=== PATIENT | male | born 1970 | race American Indian/Alaskan Native ===

== ENCOUNTER 2020-04-21 22:49 | Emergency (ER) | payer MEDICARE, MEDICAID ==
[2020-04-21 23:55] LABS: Basophils % (Auto) 0.5 % (0.0-1.8); Eosinophils # (Auto) 0.3 K/mm3 (0.0-0.4); Eosinophils % (Auto) 3.4 % (0.0-4.3); Hematocrit 47.6 % (35.5-45.6); Hemoglobin 16.8 gm/dl (11.8-15.2); Lymphocytes # (Auto) 1.3 K/mm3 (1.2-5.4); Lymphocytes % (Auto) 14.3 % (13.4-35.0); Mean Corpuscular HGB Conc 35 % (32-34); Mean Corpuscular Volume 87 fl (84-94); Monocytes % (Auto) 11.2 % (0.0-7.3); Platelet Count 210 K/mm3 (140-440); Red Cell Distribution Width 14.7 % (13.2-15.2)
[2020-04-22 00:13] LABS: BUN/Creatinine Ratio 19; Blood Urea Nitrogen 17 mg/dL (9-20); Calcium 9.5 mg/dL (8.4-10.2); Hemolysis Index 20
--- NOTE | 2020-04-22 00:27 | Emergency Department Report ---
<LYNNETTE PRESSLEY - Last Filed: 04/22/20 02:09> ED Psych HPI - General Chief Complaint: Psych Stated Complaint: SI Time Seen by Provider: 04/21/20 23:18 Source: patient, EMS Mode of arrival: Ambulatory - History of Present Illness Initial Comments: 49-year-old male with a past medical history of major depressive disorder, previous suicide attempt via overdose, AIDS, hypertension, and type 2 diabetes presents to the hospital complaining of suicidal ideation and substance abuse. Patient states he has been suicidal for the last day and a half because his boyfriend broke up with him. He relapsed on methamphetamines and GHB. Patient denies any physical complaints. He is compliant with his medications antiretrovirals and states his medication list is currently at [facility]. He was sent to [facility] for medical clearance for inpatient psychiatric admission. Patient states he takes metformin 1000 mg twice daily, glipizide 2 to 3 mg daily, and lisinopril 10 mg for his blood pressure. He also takes antiretrovirals - Related Data Allergies Allergy/AdvReac Type Severity Reaction Status Date / Time No Known Allergies Allergy Unverified 04/21/20 23:27 ED Review of Systems Comment: All other systems reviewed and negative ED Past Medical Hx - Past Medical History Hx Hypertension: Yes Hx Diabetes: Yes (TYPE 2) Hx HIV: Yes (AIDS) - Social History Smoking Status: Current Every Day Smoker Substance Use Type: Methamphetamines, Other ED Physical Exam - General Limitations: No Limitations - Other Other exam information: General: No acute distress Head: Atraumatic Eyes: normal appearance ENT: Moist mucous membranes Neck: Normal appearance, no midline tenderness Chest: Clear to auscultation bilaterally CV: Regular rate and rhythm Abdomen: Soft, normal bowel sounds, nontender, nondistended, no rebound or guarding Back: Normal inspection Extremity: Normal inspection, full range of motion Neuro: Alert O x 3, no facial asymmetry, speech clear, no gross motor sensory deficit Psych: Appropriate behavior Skin: No rash ED Course - Reevaluation(s) Reevaluation #1: 04/22/20 02:10 At this time still awaiting urine collection to complete medical clearance. Patient will need to be signed out. Patient's heart rate 100 and he does endorse methamphetamine use. Anticipate that patient will be able to be medically cleared after UA and UDS review ED Medical Decision Making - Lab Data Result diagrams: 04/21/20 23:28 04/21/20 23:28 Lab Results 04/21/20 04/21/20 04/21/20 Range/Units 23:28 23:28 23:28 WBC 9.2 (4.5-11.0) K/mm3 RBC 5.50 H (3.65-5.03) M/mm3 Hgb 16.8 H (11.8-15.2) gm/dl Hct 47.6 H (35.5-45.6) % MCV 87 (84-94) fl MCH 31 (28-32) pg MCHC 35 H (32-34) % RDW 14.7 (13.2-15.2) % Plt Count 210 (140-440) K/mm3 Lymph % (Auto) 14.3 (13.4-35.0) % [place] % (Auto) 11.2 H (0.0-7.3) % Eos % (Auto) 3.4 (0.0-4.3) % Baso % (Auto) 0.5 (0.0-1.8) % Lymph # (Auto) 1.3 (1.2-5.4) K/mm3 [place] # (Auto) 1.0 H (0.0-0.8) K/mm3 Eos # (Auto) 0.3 (0.0-0.4) K/mm3 Baso # (Auto) 0.0 (0.0-0.1) K/mm3 Seg Neutrophils % 70.6 H (40.0-70.0) % Seg Neutrophils # 6.5 (1.8-7.7) K/mm3 Sodium 134 L (137-145) mmol/L Potassium 3.4 L (3.6-5.0) mmol/L Chloride 91.3 L (98-107) mmol/L Carbon Dioxide 22 (22-30) mmol/L Anion Gap 24 mmol/L BUN 17 (9-20) mg/dL Creatinine 0.9 (0.8-1.3) mg/dL Estimated GFR > 60 ml/min BUN/Creatinine Ratio 19 % Glucose 222 H (75-100) mg/dL Calcium 9.5 (8.4-10.2) mg/dL Salicylates < 0.3 L (2.8-20.0) mg/dL Acetaminophen (10.0-30.0) ug/mL Plasma/Serum Alcohol (0-0.07) % 04/21/20 04/21/20 Range/Units 23:28 23:28 WBC (4.5-11.0) K/mm3 RBC (3.65-5.03) M/mm3 Hgb (11.8-15.2) gm/dl Hct (35.5-45.6) % MCV (84-94) fl MCH (28-32) pg MCHC (32-34) % RDW (13.2-15.2) % Plt Count (140-440) K/mm3 Lymph % (Auto) (13.4-35.0) % [place] % (Auto) (0.0-7.3) % Eos % (Auto) (0.0-4.3) % Baso % (Auto) (0.0-1.8) % Lymph # (Auto) (1.2-5.4) K/mm3 [place] # (Auto) (0.0-0.8) K/mm3 Eos # (Auto) (0.0-0.4) K/mm3 Baso # (Auto) (0.0-0.1) K/mm3 Seg Neutrophils % (40.0-70.0) % Seg Neutrophils # (1.8-7.7) K/mm3 Sodium (137-145) mmol/L Potassium (3.6-5.0) mmol/L Chloride (98-107) mmol/L Carbon Dioxide (22-30) mmol/L Anion Gap mmol/L BUN (9-20) mg/dL Creatinine (0.8-1.3) mg/dL Estimated GFR ml/min BUN/Creatinine Ratio % Glucose (75-100) mg/dL Calcium (8.4-10.2) mg/dL Salicylates (2.8-20.0) mg/dL Acetaminophen 5.0 L (10.0-30.0) ug/mL Plasma/Serum Alcohol < 0.01 (0-0.07) % - Medical Decision Making 1013 signed for suicidal ideation with plan. I have continued his diabetes and blood pressure medication. Awaiting mental health consultation in the a.m. Critical Care Time: No ED Disposition Clinical Impression: Suicidal ideation, Methamphetamine abuse, Gammahydroxy butarate (GHB) use disorder, mild, abuse, Intentional acetaminophen overdose Disposition: DC/TX-65 PSY HOSP/PSY UNIT Condition: Stable Instructions: Suicide Prevention for Adults (ED) Additional Instructions: Patient will be discharged back to Inpatient psychiatric services at [facility] [Primary Care Provider[facility] - 3-5 Days <BRITNEY ROTH - Last Filed: 04/22/20 17:17> ED Medical Decision Making - Lab Data Result diagrams: 04/21/20 23:28 04/21/20 23:28 - Medical Decision Making Patient was screened by mental health and after medical clearance the patient to be sent back to [facility] Medically cleared after being observed in the emergency department for greater than 18 hours. <CYNTHIA WEINSTEIN - Last Filed: 04/24/20 14:47> ED Review of Systems ROS: Stated complaint: SI Other details as noted in HPI ED Course Vital Signs 04/21/20 04/22/20 04/22/20 23:10 02:04 09:16 Temperature 97.9 F 97.3 F L 98.0 F Pulse Rate 109 H 100 H 100 H Respiratory 16 18 16 Rate Blood Pressure 155/95 Blood Pressure 151/91 150/72 [Right] O2 Sat by Pulse 99 98 98 Oximetry 04/22/20 04/22/20 04/22/20 10:06 10:44 15:29 Temperature Pulse Rate 100 H 100 H Respiratory 18 18 Rate Blood Pressure 150/78 Blood Pressure 102/64 [Right] O2 Sat by Pulse 98 98 Oximetry 04/22/20 19:18 Temperature 98.0 F Pulse Rate 109 H Respiratory 18 Rate Blood Pressure Blood Pressure 104/75 [Right] O2 Sat by Pulse 97 Oximetry - Reevaluation(s) Reevaluation #2: 04/22/20 08:47 Leukocytosis likely a stress reaction, likely secondary to methamphetamine use. Tachycardia and elevated blood pressure also likely secondary to this. Polycythemia does not represent an emergency medical condition, it as an outpatient condition, and is likely secondary to dehydration. At this moment, patient does not appear to have an immediate medical contraindication to psychiatric imaging, evaluation, consultation and placement. As needed Xanax is ordered. Urinalysis is pending, nursing team is instructed to repeat vital signs. ED Medical Decision Making - Lab Data Result diagrams: 04/21/20 23:28 04/21/20 23:28 Critical care attestation.: If time is entered above; I have spent that time in minutes in the direct care of this critically ill patient, excluding procedure time. ED Disposition Is pt being admited?: No Does the pt Need Aspirin: No
[2020-04-22] MEDS ORDERED: metFORMIN 500 MG TAB PO ONE (00:31)
[2020-04-22] MEDS ORDERED: POTASSIUM CHLORIDE ER 20 MEQ TAB PO ONE (00:31)
[2020-04-22] MEDS ORDERED: ALPRAZolam 0.5 MG TAB PO PRN (08:47)
[2020-04-22] MEDS: metFORMIN 500 MG TAB PO SCH ×2 (08:54→21:24)
[2020-04-22 09:25] LABS: Bilirubin,Urine NEG (Negative); Blood,Urine NEG (Negative); Color,Urine Yellow (Yellow); Hyaline Casts,Urine 1 /LPF; Mucus,Urine FEW /HPF; Protein,Urine <15 mg/dL mg/dL (Negative)
[2020-04-22 09:33] LABS: Benzodiazepines Screen,Urine Negative; Cannabinoid Screen,Urine Negative; Cocaine Screen,Urine Negative; Methadone Screen,Urine Negative; Opiate Screen,Urine Negative
[2020-04-22 09:47] LABS: Amphetamine Screen,Urine Positive
[2020-04-22] MEDS ORDERED: LISINOPRIL 10 MG TAB PO SCH (10:00)
[2020-04-22 19:19] VITALS: BP 104/75
== END 2020-04-23 00:24 ==
LOC: ED 22:49 → EEVIPCON 22:49 → ED 04-23 00:24
DX: T39.1X2A Poisoning by 4-Aminophenol derivatives, intentional self-harm, initial encounter (principal); R45.851 Suicidal ideations; F15.10 Other stimulant abuse, uncomplicated; F13.10 Sedative, hypnotic or anxiolytic abuse, uncomplicated; I10 Essential (primary) hypertension; F32.9 Major depressive disorder, single episode, unspecified; E11.9 Type 2 diabetes mellitus without complications; F17.200 Nicotine dependence, unspecified, uncomplicated; Z21 Asymptomatic human immunodeficiency virus [HIV] infection status; Y93.89 Activity, other specified
CPT/HCPCS: 36415; 80048; 80320; 85025; G0480

== ENCOUNTER 2021-10-27 19:58 | Emergency (ER) | payer MEDICARE ==
[2021-10-27 20:05] VITALS: BP 173/90
[2021-10-27] MEDS ORDERED: HYDROcodone/ACETAMINOPHEN 5-325 MG TAB PO ONE (22:54)
--- NOTE | 2021-10-27 23:19 | Emergency Department Report ---
ED General Adult HPI - General Chief complaint: Extremity Injury, Lower Stated complaint: RIGHT LEG AND FOOT SWOLLEN Time Seen by Provider: 10/27/21 22:53 Source: patient Mode of arrival: Ambulatory Limitations: No Limitations - History of Present Illness Initial comments: Patient is a 50-year-old male with history of peripheral vascular disease, status post femoropopliteal 5 weeks ago right lower extremity, HIV polyps, hypertension, diabetes type 2, patient presents for right lower extremity pain, that radiates to right groin. With some swelling. Patient states femoropopliteal 5 weeks ago with [facility] vascular. Patient has follow-up with vascular surgery in 1 week. States 5/10 leg pain that radiates to right groin. Patient denies calf numbness or tingling pain is exacerbated by palpation and dorsiflexion. There is no shortness of breath, no cough no shortness of breath no wheezing, no fever no chills. There is no paralysis no weakness patient denies fall injury or trauma. Severity scale (0 -10): 8 - Related Data Home Medications Medication Instructions Recorded Confirmed Last Taken Glimepiride [Amaryl] 2 mg PO DAILY 09/15/20 09/15/20 Unknown Metformin HCl [metFORMIN] 1,000 mg PO BID 09/15/20 09/15/20 Unknown lisinopriL [Lisinopril] 10 mg PO DAILY 09/15/20 09/15/20 Unknown Previous Rx's Medication Instructions Recorded Last Taken Type ARIPiprazole [Abilify TAB] 10 mg PO QDAY #14 tablet 09/16/20 Unknown Rx Lispro Insulin [HumaLOG] 0 unit SUB-Q QACHS #1 vial 09/16/20 Unknown Rx Melatonin [Melatonin 5MG TAB] 5 mg PO QHS #14 tablet 09/16/20 Unknown Rx Sertraline [Zoloft] 150 mg PO QDAY #14 tablet 09/16/20 Unknown Rx buPROPion XL [Wellbutrin XL] 300 mg PO QDAY #14 tablet 09/16/20 Unknown Rx levoFLOXacin [Levaquin] 750 mg PO QDAY #4 tablet 09/16/20 Unknown Rx traZODone [Desyrel] 75 mg PO QHS tablet 09/16/20 Unknown Rx traMADoL [Ultram] 50 mg PO Q6HR PRN #12 tablet 10/28/21 Unknown Rx Allergies Allergy/AdvReac Type Severity Reaction Status Date / Time No Known Allergies Allergy Verified 10/27/21 20:20 ED Review of Systems ROS: Stated complaint: RIGHT LEG AND FOOT SWOLLEN Other details as noted in HPI Constitutional: denies: chills, fever Eyes: denies: eye pain, eye discharge, vision change ENT: denies: ear pain, throat pain Respiratory: denies: cough, shortness of breath, wheezing Cardiovascular: denies: chest pain, palpitations, paroxysmal nocturnal dyspnea Endocrine: no symptoms reported Gastrointestinal: denies: abdominal pain, nausea, vomiting, diarrhea Genitourinary: denies: urgency, dysuria Musculoskeletal: other (Right leg pain) Skin: denies: rash, lesions Neurological: denies: headache, weakness, numbness, paresthesias, confusion, vertigo Psychiatric: denies: anxiety, depression Hematological/Lymphatic: denies: easy bleeding, easy bruising ED Past Medical Hx - Past Medical History Previous Medical History?: Yes Hx Hypertension: Yes Hx Congestive Heart Failure: No Hx Diabetes: Yes (TYPE 2) Hx Asthma: No Hx COPD: No Hx HIV: Yes (AIDS) - Surgical History Past Surgical History?: Yes Additional Surgical History: TOE AMPUTATION MIDDLE TOE RIGHT - Social History Smoking Status: Current Every Day Smoker Substance Use Type: None - Medications Home Medications: Home Medications Medication Instructions Recorded Confirmed Last Taken Type Glimepiride [Amaryl] 2 mg PO DAILY 09/15/20 09/15/20 Unknown History Metformin HCl [metFORMIN] 1,000 mg PO BID 09/15/20 09/15/20 Unknown History lisinopriL [Lisinopril] 10 mg PO DAILY 09/15/20 09/15/20 Unknown History ARIPiprazole [Abilify TAB] 10 mg PO QDAY #14 tablet 09/16/20 Unknown Rx Lispro Insulin [HumaLOG] 0 unit SUB-Q QACHS #1 vial 09/16/20 Unknown Rx Melatonin [Melatonin 5MG TAB] 5 mg PO QHS #14 tablet 09/16/20 Unknown Rx Sertraline [Zoloft] 150 mg PO QDAY #14 tablet 09/16/20 Unknown Rx buPROPion XL [Wellbutrin XL] 300 mg PO QDAY #14 tablet 09/16/20 Unknown Rx levoFLOXacin [Levaquin] 750 mg PO QDAY #4 tablet 09/16/20 Unknown Rx traZODone [Desyrel] 75 mg PO QHS tablet 09/16/20 Unknown Rx traMADoL [Ultram] 50 mg PO Q6HR PRN #12 tablet 10/28/21 Unknown Rx ED Physical Exam - General Limitations: No Limitations General appearance: alert, in no apparent distress - Head Head exam: Present: normocephalic, normal inspection - Eye Eye exam: Present: EOMI Pupils: Present: normal accommodation - ENT ENT exam: Present: mucous membranes moist - Neck Neck exam: Present: normal inspection, full ROM. Absent: tenderness, lymphadenopathy - Respiratory Respiratory exam: Present: normal lung sounds bilaterally. Absent: respiratory distress, wheezes, stridor, chest wall tenderness - Cardiovascular Cardiovascular Exam: Present: regular rate, normal rhythm, normal heart sounds. Absent: systolic murmur, diastolic murmur, rubs, gallop - GI/Abdominal GI/Abdominal exam: Present: soft, normal bowel sounds. Absent: distended, tenderness, guarding, rebound, rigid, bruit, hernia - Rectal Rectal exam: Present: deferred - Extremities Exam Extremities exam: Present: full ROM, normal capillary refill, pedal edema. Absent: tenderness, joint swelling, calf tenderness - Expanded Lower Extremity Exam Right Lower Leg exam: Present: swelling. Absent: ecchymosis, crepidus, erythema, palpable cord, Radha's sign Ankle exam: Absent: tenderness Foot/Toe exam: Present: swelling. Absent: tenderness Neuro vascular tendon exam: Absent: pulse deficit, motor deficit, sensory deficit, tendon deficit Gait: Positive: observed and normal - Back Exam Back exam: Present: normal inspection, full ROM. Absent: CVA tenderness (R), CVA tenderness (L) - Neurological Exam Neurological exam: Present: alert, oriented X3, CN II-XII intact, normal gait, reflexes normal - Expanded Neurological Exam Expanded Patient oriented to: Present: person, place, time Speech: Present: fluid speech Motor strength exam: RUE: 5, LUE: 5, RLE: 5, LLE: 5 DTR: knee (R): 1+, knee (L): 1+ Best Eye Response (Kent): (4) open spontaneously Best Motor Response (Kent): (6) obeys commands Best Verbal Response (Peter): (5) oriented Peter Total: 15 - Psychiatric Psychiatric exam: Present: normal affect - Skin Skin exam: Present: warm, dry, intact, normal color. Absent: rash ED Course Vital Signs 10/27/21 20:04 Temperature 98.2 F Pulse Rate 99 H Respiratory 18 Rate Blood Pressure 173/90 O2 Sat by Pulse 100 Oximetry ED Medical Decision Making - Radiology Data Radiology results: report reviewed, image reviewed Ordering Physician: LESLIE MORRIS NP Date of Service: 10/27/21 Procedure(s): VL venous duplex LE RT Accession Number(s): [id number] cc: LESLIE MORRIS NP DUPLEX DOPPLER LOWER EXTREMITY VEINS, RIGHT INDICATION / CLINICAL INFORMATION: RLE pain swelling. TECHNIQUE: Duplex doppler imaging was performed through the veins of the right lower extremity using venous compression and other maneuvers. COMPARISON: None available. FINDINGS: RIGHT COMMON FEMORAL VEIN: Negative. RIGHT FEMORAL VEIN: Negative. RIGHT POPLITEAL VEIN: Negative. RIGHT CALF VEINS: Negative. ADDITIONAL FINDINGS: None. IMPRESSION: 1. No sonographic evidence for DVT in the right lower extremity. Signer Name: Rafa Godinez II, MD Signed: 10/27/2021 11:53 PM Workstation Name: [id number] Transcribed By: GILBERT Dictated By: RAFA GODINEZ II, MD Electronically Authenticated By: RAFA GODINEZ II, MD Signed Date/Time: 10/27/212352 DD/ 52 TD/TT: - Medical Decision Making Doppler study right lower extremity no evidence of DVT, there is no noted hernia on exam, there is no open lesions sores or wounds. Plan follow-up with vascular surgery as scheduled, NSAIDs as needed pain, return to emergency department should symptoms worsen. Patient verbalized agreement understanding with discharge plan. Patient DC'd home in stable condition at this time. Critical care attestation.: If time is entered above; I have spent that time in minutes in the direct care of this critically ill patient, excluding procedure time. ED Disposition Clinical Impression: Musculoskeletal pain of right lower extremity Disposition: 07 LEFT WITHOUT BEING SEEN Is pt being admited?: No Does the pt Need Aspirin: No Condition: Stable Instructions: Pain Without a Known Cause, Musculoskeletal Pain Additional Instructions: Take medications as prescribed follow-up with your doctor in 2 to 3 days. Return to emergency should symptoms worsen Prescriptions: traMADoL [Ultram] 50 mg PO Q6HR PRN #12 tablet PRN Reason: Pain Referrals: MILY ROB MD [Primary Care Provider] - 3-5 Days [facility] [Provider Group] - 3-5 Days Forms: Work/School Release Form(ED) Time of Disposition: 00:15
--- NOTE | 2021-10-27 23:57 | Vascular Lab Report ---
DUPLEX DOPPLER LOWER EXTREMITY VEINS, RIGHT INDICATION / CLINICAL INFORMATION: RLE pain swelling. TECHNIQUE: Duplex doppler imaging was performed through the veins of the right lower extremity using venous compression and other maneuvers. COMPARISON: None available. FINDINGS: RIGHT COMMON FEMORAL VEIN: Negative. RIGHT FEMORAL VEIN: Negative. RIGHT POPLITEAL VEIN: Negative. RIGHT CALF VEINS: Negative. ADDITIONAL FINDINGS: None. IMPRESSION: 1. No sonographic evidence for DVT in the right lower extremity. Signer Name: Yann Godinez II, MD Signed: 10/27/2021 11:53 PM Workstation Name: [id number]
== END 2021-10-28 00:30 | disposition left against medical advice (07) ==
LOC: ED 19:58
DX: M79.661 Pain in right lower leg (principal); I10 Essential (primary) hypertension; E11.9 Type 2 diabetes mellitus without complications; Z21 Asymptomatic human immunodeficiency virus [HIV] infection status; Z79.899 Other long term (current) drug therapy; Z98.890 Other specified postprocedural states; F17.200 Nicotine dependence, unspecified, uncomplicated
CPT/HCPCS: 99283

== ENCOUNTER 2021-10-30 15:13 | Emergency (ER) | payer MEDICARE ==
[2021-10-30 15:26] VITALS: BP 112/66
--- NOTE | 2021-10-30 16:02 | Emergency Department Report ---
ED Rash HPI - HPI Chief Complaint: Skin Rash Stated Complaint: POSSIBLE LEG INFECTION Duration: Today Location: Lower Extremities Rash Symptoms: No Itching, No Facial Swelling, No Tongue/Oral Swelling, No Breathing Difficulties, No Choking Sensation, No Wheezing/Dyspnea, No Peeling, No Blistering, No Fever, No Lightheaded, No Malaise, No Myalgias Severity: mild Other History: 50-year-old male presents to the ED with a rash noted to his right inner thigh area with mild drainage noted. Patient states that he had a pimple that is peeled and now has erythema with mild edema noted to the area. He denies any pain to the site. Patient is alert and oriented x3. No acute distress noted no ill appearance noted. Denies any fever, chills ,nausea or vomiting. ED Review of Systems ROS: Stated complaint: POSSIBLE LEG INFECTION Other details as noted in HPI Constitutional: denies: chills, fever Eyes: denies: eye pain, eye discharge, vision change ENT: denies: ear pain, throat pain Respiratory: denies: cough, shortness of breath, wheezing Cardiovascular: denies: chest pain, palpitations Endocrine: no symptoms reported Gastrointestinal: denies: abdominal pain, nausea, diarrhea Genitourinary: denies: urgency, dysuria Musculoskeletal: denies: back pain, joint swelling, arthralgia Skin: rash. denies: lesions Neurological: denies: headache, weakness, paresthesias Psychiatric: denies: anxiety, depression Hematological/Lymphatic: denies: easy bleeding, easy bruising ED Past Medical Hx - Past Medical History Hx Hypertension: Yes Hx Congestive Heart Failure: No Hx Diabetes: Yes (TYPE 2) Hx Asthma: No Hx COPD: No Hx HIV: Yes (AIDS) - Surgical History Additional Surgical History: TOE AMPUTATION MIDDLE TOE RIGHT - Social History Smoking Status: Never Smoker Substance Use Type: None - Medications Home Medications: Home Medications Medication Instructions Recorded Confirmed Last Taken Type Glimepiride [Amaryl] 2 mg PO DAILY 09/15/20 09/15/20 Unknown History Metformin HCl [metFORMIN] 1,000 mg PO BID 09/15/20 09/15/20 Unknown History lisinopriL [Lisinopril] 10 mg PO DAILY 09/15/20 09/15/20 Unknown History ARIPiprazole [Abilify TAB] 10 mg PO QDAY #14 tablet 09/16/20 Unknown Rx Lispro Insulin [HumaLOG] 0 unit SUB-Q QACHS #1 vial 09/16/20 Unknown Rx Melatonin [Melatonin 5MG TAB] 5 mg PO QHS #14 tablet 09/16/20 Unknown Rx Sertraline [Zoloft] 150 mg PO QDAY #14 tablet 09/16/20 Unknown Rx buPROPion XL [Wellbutrin XL] 300 mg PO QDAY #14 tablet 09/16/20 Unknown Rx levoFLOXacin [Levaquin] 750 mg PO QDAY #4 tablet 09/16/20 Unknown Rx traZODone [Desyrel] 75 mg PO QHS tablet 09/16/20 Unknown Rx traMADoL [Ultram] 50 mg PO Q6HR PRN #12 tablet 10/28/21 Unknown Rx Acetaminophen/Codeine [Tylenol 1 tab PO Q6H PRN 3 Days #12 tab 10/30/21 Unknown Rx /Codeine # 3 tab] Sulfamethoxazole/Trimethoprim 1 each PO BID 10 Days #20 tab 10/30/21 Unknown Rx [Bactrim DS TAB] cephALEXin [Keflex] 500 mg PO Q12HR 10 Days #20 cap 10/30/21 Unknown Rx Rash Exam - Exam General: Vital signs noted. No distress. Alert and acting appropriately. HEENT: No Periorbital Edema, No Conjuctival Injection, No Chemosis, No Perioral Edema, No Tongue Edema, No Uvular Edema, No Compromised Airway, No Drooling Lungs: Yes Good Air Exchange (Normal Breath Sounds), No Wheezes, No Ronchi, No Stridor, No Cough, No Labored Respirations, No Retractions, No Use of Accessory Muscles, No Other Abnormal Lung Sounds Heart: Yes Regular, No Murmur Skin: Yes Maculopapular Rash, Yes Tenderness, Yes Erythema, Yes Edema, No Urticarial Rash, No Morbilliform rash, No Bulla(e), No Excoriations, No Weeping, No Encrustations, No Other Other: Positive: Abdomen Normal, Neurologic Normal, Musculoskeletal Normal ED Course Vital Signs 10/30/21 15:24 Temperature 98.4 F Pulse Rate 92 H Respiratory 18 Rate Blood Pressure 112/66 [Right] O2 Sat by Pulse 99 Oximetry ED Medical Decision Making - Medical Decision Making 50-year-old male presents to the ED with a rash noted to his right inner thigh area with mild drainage noted. Patient states that he had a pimple that is peeled and now has erythema with mild edema noted to the area. He denies any pain to the site. Patient is alert and oriented x3. No acute distress noted no ill appearance noted. Denies any fever, chills ,nausea or vomiting. Physical examination noticed cellulitis to the right inner thigh area we will treat patient with antibiotic. Patient to return for any worsening symptoms and to follow-up with primary care doctor in 3-5 days. Rechecked the patient is resting quietly quietly and comfortable and feeling better. I discussed the results of diagnostic study, my clinical impression and the plan for further treatment with the patient. Patient agrees with plan and discharge at this present time. All question addressed. I have given the patient instruction regarding a diagnosis ,expectation ,follow- up and return precaution. I explained to the patient that emergent condition may arise and to return to the ED for new worsen and any new persisting condition. I have explained the importance of following up with the primary care physician or referral physician listed below has instructed. The patient verbalized understanding of discharge instruction. Critical care attestation.: If time is entered above; I have spent that time in minutes in the direct care of this critically ill patient, excluding procedure time. ED Disposition Clinical Impression: Cellulitis Qualifiers: Site of cellulitis: extremity Site of cellulitis of extremity: lower extremity Laterality: right Qualified Code(s): L03.115 - Cellulitis of right lower limb Disposition: 01 HOME / SELF CARE / HOMELESS Is pt being admited?: No Does the pt Need Aspirin: No Condition: Stable Instructions: Cellulitis, Adult, [id number] Additional Instructions: Take medication as prescribed Return to ED for any worsening symptom Follow-up with primary care doctor in 3 to 5 days Prescriptions: Sulfamethoxazole/Trimethoprim [Bactrim DS TAB] 1 each PO BID 10 Days #20 tab cephALEXin [Keflex] 500 mg PO Q12HR 10 Days #20 cap Acetaminophen/Codeine [Tylenol /Codeine # 3 tab] 1 tab PO Q6H PRN 3 Days #12 tab PRN Reason: Pain, Moderate (4-6) Referrals: [facility] [Provider Group] - 3-5 Days
== END 2021-10-30 16:28 | disposition home or self-care (01) ==
LOC: ED 15:13
DX: L03.115 Cellulitis of right lower limb (principal); I10 Essential (primary) hypertension; E11.9 Type 2 diabetes mellitus without complications; Z21 Asymptomatic human immunodeficiency virus [HIV] infection status
CPT/HCPCS: 99282

== ENCOUNTER 2021-11-23 11:02 | Emergency (ER) | payer MEDICARE ==
--- NOTE | 2021-11-23 13:43 | Emergency Department Report ---
ED General Adult HPI - General Chief complaint: Extremity Injury, Lower Stated complaint: RT LEG PAIN Source: patient Mode of arrival: Ambulatory Limitations: No Limitations - History of Present Illness Initial comments: 50-year-old male with past medical history hypertension, diabetes type 2, HIV reports to the ER with complaints of right leg swelling with redness that he noticed yesterday morning. Patient denies any acute pain to right leg. Patient denies injury, insect bite or wound to right leg. Patient denies history of DVTs in lower extremities. Patient reports compliance with all medications. Denies dizziness, headache, shortness of breath, chest pain, fatigue and weakness. No other acute symptoms reported. -: Sudden Location: lower extremity (right leg ) Severity scale (0 -10): 0 Associated Symptoms: rash, other (right leg swelling ) - Related Data Home Medications Medication Instructions Recorded Confirmed Last Taken Glimepiride [Amaryl] 2 mg PO DAILY 09/15/20 09/15/20 Unknown Metformin HCl [metFORMIN] 1,000 mg PO BID 09/15/20 09/15/20 Unknown lisinopriL [Lisinopril] 10 mg PO DAILY 09/15/20 09/15/20 Unknown Previous Rx's Medication Instructions Recorded Last Taken Type ARIPiprazole [Abilify TAB] 10 mg PO QDAY #14 tablet 09/16/20 Unknown Rx Lispro Insulin [HumaLOG] 0 unit SUB-Q QACHS #1 vial 09/16/20 Unknown Rx Melatonin [Melatonin 5MG TAB] 5 mg PO QHS #14 tablet 09/16/20 Unknown Rx Sertraline [Zoloft] 150 mg PO QDAY #14 tablet 09/16/20 Unknown Rx buPROPion XL [Wellbutrin XL] 300 mg PO QDAY #14 tablet 09/16/20 Unknown Rx traZODone [Desyrel] 75 mg PO QHS tablet 09/16/20 Unknown Rx traMADoL [Ultram] 50 mg PO Q6HR PRN #12 tablet 10/28/21 Unknown Rx Acetaminophen/Codeine [Tylenol 1 tab PO Q6H PRN 3 Days #12 tab 10/30/21 Unknown Rx /Codeine # 3 tab] Sulfamethoxazole/Trimethoprim 1 each PO BID 10 Days #20 tab 11/23/21 Unknown Rx [Bactrim DS TAB] Allergies Allergy/AdvReac Type Severity Reaction Status Date / Time No Known Allergies Allergy Verified 11/23/21 11:10 ED Review of Systems ROS: Stated complaint: RT LEG PAIN Other details as noted in HPI Constitutional: denies: chills, fever Eyes: denies: eye pain, eye discharge, vision change ENT: denies: ear pain, throat pain Respiratory: denies: cough, shortness of breath, wheezing Cardiovascular: denies: chest pain, palpitations Endocrine: no symptoms reported Gastrointestinal: denies: abdominal pain, nausea, diarrhea Genitourinary: denies: urgency, dysuria Musculoskeletal: other (+ right leg swelling with redness and warmth ). denies: back pain, joint swelling, arthralgia Skin: rash. denies: lesions Neurological: denies: headache, weakness, paresthesias Psychiatric: denies: anxiety, depression Hematological/Lymphatic: denies: easy bleeding, easy bruising ED Past Medical Hx - Past Medical History Hx Hypertension: Yes Hx Congestive Heart Failure: No Hx Diabetes: Yes (TYPE 2) Hx Asthma: No Hx COPD: No Hx HIV: Yes (AIDS) - Surgical History Additional Surgical History: TOE AMPUTATION MIDDLE TOE RIGHT - Social History Smoking Status: Never Smoker Substance Use Type: None - Medications Home Medications: Home Medications Medication Instructions Recorded Confirmed Last Taken Type Glimepiride [Amaryl] 2 mg PO DAILY 09/15/20 09/15/20 Unknown History Metformin HCl [metFORMIN] 1,000 mg PO BID 09/15/20 09/15/20 Unknown History lisinopriL [Lisinopril] 10 mg PO DAILY 09/15/20 09/15/20 Unknown History ARIPiprazole [Abilify TAB] 10 mg PO QDAY #14 tablet 09/16/20 Unknown Rx Lispro Insulin [HumaLOG] 0 unit SUB-Q QACHS #1 vial 09/16/20 Unknown Rx Melatonin [Melatonin 5MG TAB] 5 mg PO QHS #14 tablet 09/16/20 Unknown Rx Sertraline [Zoloft] 150 mg PO QDAY #14 tablet 09/16/20 Unknown Rx buPROPion XL [Wellbutrin XL] 300 mg PO QDAY #14 tablet 09/16/20 Unknown Rx traZODone [Desyrel] 75 mg PO QHS tablet 09/16/20 Unknown Rx traMADoL [Ultram] 50 mg PO Q6HR PRN #12 tablet 10/28/21 Unknown Rx Acetaminophen/Codeine [Tylenol 1 tab PO Q6H PRN 3 Days #12 tab 10/30/21 Unknown Rx /Codeine # 3 tab] Sulfamethoxazole/Trimethoprim 1 each PO BID 10 Days #20 tab 11/23/21 Unknown Rx [Bactrim DS TAB] ED Physical Exam - General Limitations: No Limitations General appearance: alert, in no apparent distress - Head Head exam: Present: atraumatic, normocephalic - Eye Eye exam: Present: normal appearance - ENT ENT exam: Present: mucous membranes moist - Neck Neck exam: Present: normal inspection - Respiratory Respiratory exam: Present: normal lung sounds bilaterally. Absent: respiratory distress - Cardiovascular Cardiovascular Exam: Present: regular rate, normal rhythm. Absent: systolic murmur, diastolic murmur, rubs, gallop - GI/Abdominal GI/Abdominal exam: Present: soft, normal bowel sounds - Rectal Rectal exam: Present: deferred - Extremities Exam Extremities exam: Present: normal inspection, other (left leg not affected. ) - Expanded Lower Extremity Exam Right Lower Leg exam: Present: full ROM, tenderness, swelling, erythema Ankle exam: Present: full ROM, tenderness, swelling, erythema Foot/Toe exam: Present: normal inspection, full ROM - Back Exam Back exam: Present: normal inspection - Neurological Exam Neurological exam: Present: alert, oriented X3 - Psychiatric Psychiatric exam: Present: normal affect, normal mood - Skin Skin exam: Present: warm, dry, intact, normal color. Absent: rash ED Course Vital Signs 11/23/21 11/23/21 11:07 16:51 Temperature 98.4 F 97.3 F L Pulse Rate 96 H 80 Respiratory 14 16 Rate Blood Pressure 147/89 Blood Pressure 155/87 [Left] O2 Sat by Pulse 96 100 Oximetry ED Medical Decision Making - Lab Data Result diagrams: 11/23/21 13:59 11/23/21 13:59 - Medical Decision Making 50-year-old male right leg swelling with swelling and warmth noted. no tenderness present Symptoms presented yesterday morning. Denies injury Chemistry negative for any acute processpatient has not taken his metformin for today thus his glucose is elevated patient will take his diabetes medication once home. CBC negative for any acute signs of infection. Ultrasound of right leg is negative for DVT. - see report for detailed report. Clinical diagnosis is cellulitis to right lower extremities without foot. Patient will start Bactrim DS twice daily for 10 days quantity of 20. Patient informed to follow his PCP. Patient informed that if symptoms do not improve or get worse to please report back to the ER for possible IV antibiotics. Patient agrees with plan of care and verbalizes understanding. Vital Signs 11/23/21 11:07 Temperature 98.4 F Pulse Rate 96 H Respiratory 14 Rate Blood Pressure 147/89 O2 Sat by Pulse 96 Oximetry Vital Signs 11/23/21 11/23/21 11:07 16:51 Temperature 98.4 F 97.3 F L Pulse Rate 96 H 80 Respiratory 14 16 Rate Blood Pressure 147/89 Blood Pressure 155/87 [Left] O2 Sat by Pulse 96 100 Oximetry Lab Results 11/23/21 11/23/21 11/23/21 Range/Units 11:12 13:59 13:59 WBC 5.2 (4.5-11.0) K/mm3 RBC 4.19 (3.65-5.03) M/mm3 Hgb 11.6 L (11.8-15.2) gm/dl Hct 34.5 L (35.5-45.6) % MCV 82 L (84-94) fl MCH 28 (28-32) pg MCHC 34 (32-34) % RDW 17.4 H (13.2-15.2) % Plt Count 82 L (140-440) K/mm3 Lymph % (Auto) 21.2 (13.4-35.0) % Mckean % (Auto) 9.2 H (0.0-7.3) % Eos % (Auto) 11.2 H (0.0-4.3) % Baso % (Auto) 0.4 (0.0-1.8) % Lymph # (Auto) 1.1 L (1.2-5.4) K/mm3 Mckean # (Auto) 0.5 (0.0-0.8) K/mm3 Eos # (Auto) 0.6 H (0.0-0.4) K/mm3 Baso # (Auto) 0.0 (0.0-0.1) K/mm3 Seg Neutrophils % 58.0 (40.0-70.0) % Seg Neutrophils # 3.0 (1.8-7.7) K/mm3 APTT 28.3 (24.2-36.6) Sec. Sodium (137-145) mmol/L Potassium (3.6-5.0) mmol/L Chloride (98-107) mmol/L Carbon Dioxide (22-30) mmol/L Anion Gap mmol/L BUN (9-20) mg/dL Creatinine (0.8-1.3) mg/dL Estimated GFR ml/min BUN/Creatinine Ratio % Glucose (75-100) mg/dL POC Glucose 189 H (70-105) mg/dL Calcium (8.4-10.2) mg/dL Total Bilirubin (0.1-1.2) mg/dL AST (5-40) units/L ALT (7-56) units/L Alkaline Phosphatase (35-129) units/L Total Protein (6.3-8.2) g/dL Albumin (3.9-5) g/dL Albumin/Globulin Ratio % // Range/Units 13:59 WBC (4.5-11.0) K/mm3 RBC (3.65-5.03) M/mm3 Hgb (11.8-15.2) gm/dl Hct (35.5-45.6) % MCV (84-94) fl MCH (28-32) pg MCHC (32-34) % RDW (13.2-15.2) % Plt Count (140-440) K/mm3 Lymph % (Auto) (13.4-35.0) % Mckean % (Auto) (0.0-7.3) % Eos % (Auto) (0.0-4.3) % Baso % (Auto) (0.0-1.8) % Lymph # (Auto) (1.2-5.4) K/mm3 Mckean # (Auto) (0.0-0.8) K/mm3 Eos # (Auto) (0.0-0.4) K/mm3 Baso # (Auto) (0.0-0.1) K/mm3 Seg Neutrophils % (40.0-70.0) % Seg Neutrophils # (1.8-7.7) K/mm3 APTT (24.2-36.6) Sec. Sodium 135 L (137-145) mmol/L Potassium 3.7 (3.6-5.0) mmol/L Chloride 99.5 (98-107) mmol/L Carbon Dioxide 22 (22-30) mmol/L Anion Gap 17 mmol/L BUN 13 (9-20) mg/dL Creatinine 0.9 (0.8-1.3) mg/dL Estimated GFR > 60 ml/min BUN/Creatinine Ratio 14 % Glucose 226 H (75-100) mg/dL POC Glucose (70-105) mg/dL Calcium 8.8 (8.4-10.2) mg/dL Total Bilirubin 0.40 (0.1-1.2) mg/dL AST 15 (5-40) units/L ALT 15 (7-56) units/L Alkaline Phosphatase 89 (35-129) units/L Total Protein 7.1 (6.3-8.2) g/dL Albumin 3.9 (3.9-5) g/dL Albumin/Globulin Ratio 1.2 % Critical care attestation.: If time is entered above; I have spent that time in minutes in the direct care of this critically ill patient, excluding procedure time. ED Disposition Clinical Impression: Cellulitis of right leg without foot Disposition: 01 HOME / SELF CARE / HOMELESS Is pt being admited?: No Does the pt Need Aspirin: No Condition: Stable Instructions: Cellulitis, Adult, Cellulitis, Adult, [id number] Additional Instructions: Please follow-up with your current primary care provider to inform them of your visit here in the ER. If symptoms get worse or infection does not improve while on antibiotics please report back to the ER as soon as possible. Prescriptions: Sulfamethoxazole/Trimethoprim [Bactrim DS TAB] 1 each PO BID 10 Days #20 tab Referrals: MILY ROB MD [Primary Care Provider] - 3-5 Days Time of Disposition: 16:36
--- NOTE | 2021-11-23 14:58 | Vascular Lab Report ---
DUPLEX DOPPLER LOWER EXTREMITY VEINS, RIGHT INDICATION / CLINICAL INFORMATION: right leg swelling. TECHNIQUE: Duplex doppler imaging was performed through the veins of the right lower extremity using venous comp ression and other maneuvers. COMPARISON: None available. FINDINGS: RIGHT COMMON FEMORAL VEIN: Negative. RIGHT FEMORAL VEIN: Negative. RIGHT POPLITEAL VEIN: Negative. RIGHT CALF VEINS: Negative. ADDITIONAL FINDINGS: None. IMPRESSION: 1. No sonographic evidence for DVT in the right lower extremity. Signer Name: Giovanny Burns MD Signed: 11/23/2021 2:53 PM Workstation Name: [id number]
[2021-11-23 15:07] LABS: Basophils % (Auto) 0.4 % (0.0-1.8); Eosinophils # (Auto) 0.6 K/mm3 (0.0-0.4); Eosinophils % (Auto) 11.2 % (0.0-4.3); Hematocrit 34.5 % (35.5-45.6); Hemoglobin 11.6 gm/dl (11.8-15.2); Lymphocytes # (Auto) 1.1 K/mm3 (1.2-5.4); Lymphocytes % (Auto) 21.2 % (13.4-35.0); Mean Corpuscular HGB Conc 34 % (32-34); Mean Corpuscular Volume 82 fl (84-94); Monocytes # (Auto) 0.5 K/mm3 (0.0-0.8); Monocytes % (Auto) 9.2 % (0.0-7.3); Platelet Count 82 K/mm3 (140-440); Red Blood Count 4.19 M/mm3 (3.65-5.03); Red Cell Distribution Width 17.4 % (13.2-15.2)
[2021-11-23 15:13] LABS: Alanine Aminotransferase 15 units/L (7-56); Albumin 3.9 g/dL (3.9-5); BUN/Creatinine Ratio 14; Blood Urea Nitrogen 13 mg/dL (9-20); Calcium 8.8 mg/dL (8.4-10.2); Hemolysis Index 5
[2021-11-23] MEDS ORDERED: SULFAMETHOXAZOLE/TRIMETHOPRIM 800/160MG DS TAB PO ONE (15:22)
[2021-11-23 16:52] VITALS: BP 155/87
== END 2021-11-23 16:53 | disposition home or self-care (01) ==
LOC: ED 11:02
DX: L03.115 Cellulitis of right lower limb (principal); I10 Essential (primary) hypertension; E11.8 Type 2 diabetes mellitus with unspecified complications
CPT/HCPCS: 36415; 80053; 82962; 85025; 85730; 99284